=== PATIENT | male | born 1975 | race Hispanic/Latino ===

== ENCOUNTER 2018-02-17 15:21 | Inpatient (IN) | payer SELFPAY ==
[2018-02-17] MEDS ORDERED: Piperacillin/Tazobact 3.375 gm 100 ML IV STA (15:42)
--- NOTE | 2018-02-17 15:44 | C.PDOC ---
History Of Present Illness 42 year old male presents to the emergency department with complaints of a cyst started 2 weeks ago on the posterior aspect of his neck near C6 and C7. Patient reports as the cyst grew larger he attempted to pop it but to no avail, the cyst continued to grow. Patient reports he had a fever last week which presented with pain, and that he began to take a friend's pain medications. He now has a large mass with purulent weeping and surrounding redness and tenderness. Time Seen by Provider: 02/17/18 15:37 Chief Complaint (Nursing): Abnormal Skin Integrity History Per: Patient History/Exam Limitations: no limitations Onset/Duration Of Symptoms: Other (2 weeks) Current Symptoms Are (Timing): Worse Quality Of Symptoms: Painful, Swollen, Draining Past Medical History Reviewed: Historical Data, Nursing Documentation, Vital Signs Vital Signs: Last Vital Signs Temp 98.7 F 02/17/18 15:25 Pulse 112 H 02/17/18 15:41 Resp 18 02/17/18 15:41 BP 164/101 H 02/17/18 15:41 Pulse Ox 96 02/17/18 16:59 - Medical History PMH: No Chronic Diseases Surgical History: No Surg Hx Family History: States: No Known Family Hx - Social History Hx Alcohol Use: Yes Hx Substance Use: No Review Of Systems Constitutional: Negative for: Fever, Chills, Sweats Respiratory: Negative for: Shortness of Breath, Pleuritic Pain Skin: Positive for: Other (cyst with surrounding redness) Physical Exam - Physical Exam Appears: Well, Non-toxic, No Acute Distress Skin: Other (large abscess with foul-smelling fluid drainage from multiple areas. Surroinding indurated red cellulitis. ) Head: Atraumatic Neck: Normal ROM, Trachea Midline, No Midline Cervical Tenderness, No Paracervical Tenderness Lymphatic: No Adenopathy Chest: Symmetrical Cardiovascular: Rhythm Regular (tachycardic) Respiratory: Normal Breath Sounds ED Course And Treatment - Laboratory Results Result Diagrams: 02/17/18 15:58 02/17/18 15:58 Lab Interpretation: No Acute Changes O2 Sat by Pulse Oximetry: 96 (RA) Pulse Ox Interpretation: Normal Progress Note: Plan: CMP. CBC. Zosyn 100ml IV. Vancomycin 1gm/250ml IV. Blood Culture. Wound Culture and Gram Stain Reevaluation Time: 16:57 Reassessment Condition: Unchanged - Physician Consult Information Outcome Of Conversation: Case discussed with Dr Scott. Patient to be admitted to medicine for IV antibiotics and surgical consult for I&D in 1-[address] Sorto agrees to accept on medicine service. Disposition - Disposition Disposition: HOSPITALIZED Disposition Time: 16:58 Condition: STABLE - POA Present On Arrival: None - Clinical Impression Clinical Impression: Cellulitis, Abscess of skin of neck - Scribe Statement The provider has reviewed the documentation as recorded by the Scribe (Triston Mckinleyvi) Provider Attestation: All medical record entries made by the Scribe were at my direction and personally dictated by me. I have reviewed the chart and agree that the record accurately reflects my personal performance of the history, physical exam, medical decision making, and the department course for this patient. I have also personally directed, reviewed, and agree with the discharge instructions and disposition.
[2018-02-17] MEDS ORDERED: Vancomycin 1 GM 1 GM/250 ML BAG IV SCH ×2 (15:45→17:00)
[2018-02-17 16:05] LABS: BASO # 0.1 K/uL (0.0-0.2); BASO % 0.5 % (0.0-2.0); EOS # 0.2 K/uL (0.0-0.7); EOS % 1.7 % (0.0-4.0); HEMOGLOBIN 15.1 g/dL (12.0-18.0); LYMPH # 1.4 K/uL (1.0-4.3); LYMPH % 13.2 % (20.0-40.0); MEAN CELL VOLUME 90.9 fL (80.0-94.0); MEAN CORPUSCULAR HEMOGLOBIN 32.4 pg (27.0-31.0); MEAN CORPUSCULAR HGB CONC 35.6 g/dL (33.0-37.0); MONO # 1.1 K/uL (0.0-0.8); NEUT # 7.9 K/uL (1.8-7.0); NEUT % 74.6 % (50.0-75.0); NRBC % 0.1 % (0.0-2.0); RBC 4.65 Mil/uL (4.40-5.90); RED CELL DISTRIBUTION WIDTH 12.9 % (11.5-14.5); WHITE BLOOD COUNT 10.6 K/uL (4.8-10.8)
[2018-02-17 16:17] LABS: ALB/GLOB RATIO 1.1 (1.0-2.1); ALBUMIN 4.4 g/dL (3.5-5.0); ALT/SGPT 59 U/L (21-72); AST/SGOT 56 U/L (17-59); BLOOD UREA NITROGEN 13 mg/dL (9-20); CALCIUM 9.6 mg/dl (8.6-10.4); GFR AFRICAN-AMERICAN > 60; GFR NON-AFRICAN AMERICAN > 60
[2018-02-17] MEDS ORDERED: Piperacillin/Tazobact 3.375 gm 100 ML IVPB ONE (16:20)
[2018-02-17] MEDS ORDERED: Vancomycin 1 GM 1 GM/250 ML BAG IV ONE (17:00)
[2018-02-17] MEDS ORDERED: Vancomycin 1 gm/NS 200 ml 1 GM/200 ML BAG IVPB ONE (17:00)
--- NOTE | 2018-02-17 17:09 | CP.PCM.HP ---
<Constanza Olson - Last Filed: 02/17/18 18:35> History of Present Illness - History of Present Illness History of Present Illness: Medicine Note for Hospitalist Service- Dr. Sorto CC: neck abscess HPI: This is a 42 year old male with no significant PMHx who presents to the ED with a neck abscess. Patient reports he has had a neck bump for about 10 years. It has never bothered him but it has increased in size throughout the years. Recently he was sick with the flu x 2 weeks ago, treated with OTC medications. Once he started to feel better, about a week ago the bump started to bother him so he applied slight pressure and pus was expelled. He washed the abscess and applied OTC antibacterial cream. He took a friend's percocet for the pain. He continued to have pus expelling and it started to become foul smelling, which is what brought him in. Denied sick contacts, recent travel. Admitted to slight headache this week. Denied fever, chills, chest pain, SOB, abdominal pain, n/v/d /c or urinary symptoms. PMHx: Denied PSHx: right thumb surgery at age 18 Meds: As per MAR All: NKDA SHx: Denied alcohol, tobacco, or illicit drug use FHx: Unremarkable PMD: none Cousin Jerel Gutierrez [phone] Maya Bolivar (friend) [phone] Present on Admission - Present on Admission Any Indicators Present on Admission: No Past Patient History - Past Social History Smoking Status: Never Smoked - PSYCHIATRIC Hx Substance Use: No - SURGICAL HISTORY Hx Surgeries: Yes Other/Comment: RIGHT THUMB Meds Allergies/Adverse Reactions: Allergies Allergy/AdvReac Type Severity Reaction Status Date / Time No Known Allergies Allergy Verified 02/17/18 15:29 Physical Exam - Constitutional Appears: No Acute Distress - Head Exam Head Exam: NORMAL INSPECTION, NORMOCEPHALIC - Eye Exam Eye Exam: EOMI, Normal appearance, PERRL Pupil Exam: NORMAL ACCOMODATION - ENT Exam ENT Exam: Mucous Membranes Moist, Normal Exam - Neck Exam Neck exam: Positive for: Normal Inspection Additional comments: large abscess with foul-smelling fluid drainage from multiple areas. Surrounding indurated red cellulitis. full ROM, pain elicited during head flexion due to pressure felt on abscess not 2/2 due to stiffness - Respiratory Exam Respiratory Exam: Clear to Auscultation Bilateral, NORMAL BREATHING PATTERN. absent: Wheezes - Cardiovascular Exam Cardiovascular Exam: Tachycardia - GI/Abdominal Exam GI & Abdominal Exam: Normal Bowel Sounds, Soft. absent: Distended, Tenderness - Rectal Exam Rectal Exam: Deferred - Extremities Exam Extremities exam: Positive for: normal inspection, pedal pulses present. Negative for: pedal edema, tenderness - Back Exam Back exam: NORMAL INSPECTION - Neurological Exam Neurological exam: Alert, CN II-XII Intact, Oriented x3 - Psychiatric Exam Psychiatric exam: Normal Affect, Normal Mood - Skin Skin Exam: Dry, Intact, Normal Color, Warm Results - Vital Signs Recent Vital Signs: Last Vital Signs Temp 98.7 F 02/17/18 15:25 Pulse 112 H 02/17/18 15:41 Resp 18 02/17/18 15:41 BP 164/101 H 02/17/18 15:41 Pulse Ox 96 02/17/18 17:05 - Labs Result Diagrams: 02/17/18 15:58 02/17/18 15:58 Labs: Laboratory Results - last 24 hr 02/17/18 02/17/18 15:58 15:58 WBC 10.6 RBC 4.65 Hgb 15.1 Hct 42.3 MCV 90.9 MCH 32.4 H MCHC 35.6 RDW 12.9 Plt Count 227 MPV 8.0 Neut % (Auto) 74.6 Lymph % (Auto) 13.2 L [place] % (Auto) 10.0 Eos % (Auto) 1.7 Baso % (Auto) 0.5 Neut # (Auto) 7.9 H Lymph # (Auto) 1.4 [place] # (Auto) 1.1 H Eos # (Auto) 0.2 Baso # (Auto) 0.1 Sodium 143 Potassium 4.1 Chloride 97 L Carbon Dioxide 31 H Anion Gap 20 BUN 13 Creatinine 1.0 Est GFR ( Amer) > 60 Est GFR (Non-Af Amer) > 60 Random Glucose 111 H Calcium 9.6 Total Bilirubin 0.8 AST 56 ALT 59 Alkaline Phosphatase 81 Total Protein 8.6 H Albumin 4.4 Globulin 4.1 H Albumin/Globulin Ratio 1.1 Assessment & Plan - Assessment and Plan (Free Text) Assessment: This is a 42 year old male with no significant PMHx who presents to the ED with a neck abscess, uncertain if there is spinal involvement pending CT Scan. Plan: Posterior Neck Abscess - General Surgery consulted - Dr. Scott - plan for I&D 02/18/18 - Afebrile, no leukocytosis or left shift - CXR: NAD, EKG: Sinus Tachycardia @ 102, NAD, no ST changes - Pending Neck CT to determine if there is spinal involvement -- pending results may need neurosurgery consult - Patient is medically optimized for incision and drainage. Surgery and Anesthesia to discuss risks and benefits. Management: - Vanco Q12, Zosyn Q8H, tylenol, motrin, toradol PRN, f/u vanco trough - F/U blood and wound cultures Prophylaxis - GI: Protonix, Florastor 250mg Q12 - DVT: SCDs, VTE c/i for pre-op Disposition: Patient is for OR tomorrow for I&D with Dr. Scott. DW Dr. Sorto, Constanza Olson DO, PGY-1 <Oralia Sorto V - Last Filed: 02/18/18 07:36> Results - Vital Signs Recent Vital Signs: Last Vital Signs Temp 99.2 F 02/17/18 18:20 Pulse 94 H 02/17/18 18:20 Resp 18 02/17/18 18:20 BP 145/78 02/17/18 18:20 Pulse Ox 98 02/17/18 18:20 - Labs Result Diagrams: 02/18/18 06:42 02/18/18 06:42 Labs: Laboratory Results - last 24 hr 02/17/18 02/17/18 02/17/18 15:58 15:58 17:21 WBC 10.6 RBC 4.65 Hgb 15.1 Hct 42.3 MCV 90.9 MCH 32.4 H MCHC 35.6 RDW 12.9 Plt Count 227 MPV 8.0 Neut % (Auto) 74.6 Lymph % (Auto) 13.2 L [place] % (Auto) 10.0 Eos % (Auto) 1.7 Baso % (Auto) 0.5 Neut # (Auto) 7.9 H Lymph # (Auto) 1.4 [place] # (Auto) 1.1 H Eos # (Auto) 0.2 Baso # (Auto) 0.1 PT 12.5 H INR 1.1 Sodium 143 Potassium 4.1 Chloride 97 L Carbon Dioxide 31 H Anion Gap 20 BUN 13 Creatinine 1.0 Est GFR ( Amer) > 60 Est GFR (Non-Af Amer) > 60 Random Glucose 111 H Calcium 9.6 Total Bilirubin 0.8 AST 56 ALT 59 Alkaline Phosphatase 81 Total Protein 8.6 H Albumin 4.4 Globulin 4.1 H Albumin/Globulin Ratio 1.1 Attending/Attestation - Attestation I have personally seen and examined this patient.: Yes I have fully participated in the care of the patient.: Yes I have reviewed all pertinent clinical information: Yes Notes (Text): Patient seen, examined and case discussed with day-time resident. Patient noted to have small neck bump, which he noted had expressed by himself couple of days ago, was using [facility] OTC neosporin type ointment, over the past two days he saw it expand in size, has been doing guaze changes on his own , and noted ot was quite painful and smelly. note: no nuchal rigdity, no restriction in flexion/extension at the neck, area of abscess is demaracated, no neuro deficits, noted to have small cysts over the head and prior removal of cysts Assessment/Plan 1) Posterior Neck Abscess * General Surgery consulted - Dr. Scott - plan for I&D 02/18/18 * Infectious Disease Consulted--Dr Shrestha * Afebrile, no leukocytosis or left shift * CXR: NAD, EKG: Sinus Tachycardia @ 102, NAD, no ST changes; tachycardia likely secondary to pain * Patient does not have any diabetes, hypertension, no chest pain, denies palpitations, no personal cardiac history; father had OK at age 50s. * Soft Tissue Neck CT: abscess within the superficial soft tissues overlying the dorsal paraspinal muscles at level C5-6. The abscess is contained the subcutaneous fat. No involvement of the adjacent musculature or spinal canal. Degenerative changes within the thoracic spine at T9-T10 with moderate to severe right foraminal stenosis * Patient has allowed us to take photo of his abscess and share amongst team involved in his case. Patient's cellulitis is outline with marker with deep rubor in center. Patient does have pus draining from the site. Patient about 3 finger breadths in in Y axis and about 4 finger breadths in X axis. I have educated patient that it may naturally express the abscess. * Chest xray (02/17/18): no acute cardiopulmonary disease appreciated * Detsky's criteria: Patient is low-medium risk individual for Class I 6% complications (EKG: sinus tachycardia). * Patient given dose of Zosyn and Vancomycin IV in the ED. Will continue IV antibiotics and ID consult. * Start Zosyn 3.375 IVPB Q 8H * Vancomycin 1 gram IV Q12H * NS 100cc/hr * Surgery and anesthesia to discuss risks and benefits prior to procedure respectively * will hold anticoagulation for possible OR with surgery * Blood cultures (02/17/18): pending * Wound culture (02/17/18): pending 2) Prophylaxis * GI: Protonix 40mg IV daily * Florastor 250mg PO BID * DVT PPx: Scds; hold chemical anticoagulation for possible OR with general surgery for neck abscess. * DVT: SCDs, VTE c/i for pre-op
[2018-02-17] MEDS: Sodium Chloride 0.9% 1,000 ML IV SCH (17:18)
[2018-02-17] MEDS ORDERED: Sodium Chloride 0.9% 1,000 ML ONE (17:23)
[2018-02-17 17:30] LABS: INR 1.1; PROTHROMBIN TIME 12.5 SECONDS (9.7-12.2)
--- NOTE | 2018-02-17 17:57 | RAD ---
HISTORY: pre-op COMPARISON: No prior. TECHNIQUE: Chest PA and lateral FINDINGS: LUNGS: No active pulmonary disease. PLEURA: No significant pleural effusion identified. No pneumothorax apparent. CARDIOVASCULAR: Normal. OSSEOUS STRUCTURES: No significant abnormalities. VISUALIZED UPPER ABDOMEN: Normal. OTHER FINDINGS: None. IMPRESSION: No acute cardiopulmonary disease appreciated.
[2018-02-17] MEDS ORDERED: Saccharomyces Boulardi 250 mg Cap PO SCH (18:00)
[2018-02-17] MEDS ORDERED: Iodixanol 320 MG/ML 100 ML BOTTLE IV ONE (18:26)
[2018-02-17] MEDS: Pantoprazole 40 mg EC Tab PO SCH (19:16)
--- NOTE | 2018-02-17 19:24 | CT ---
EXAM: CT Neck With Intravenous Contrast EXAM DATE/TIME: Exam ordered 02/17/2018 4:55 PM CLINICAL HISTORY: 42 years old, male; Signs and symptoms; Abscess, cutaneous; Additional info: Abscess posterior dorsal spine TECHNIQUE: Axial computed tomography images of the neck with intravenous contrast. All CT scans at this facility use one or more dose reduction techniques, viz.: automated exposure control; ma/kV adjustment per patient size (including targeted exams where dose is matched to indication; i.e. head); or iterative reconstruction technique. Coronal and sagittal reformatted images were created and reviewed. CONTRAST: 100 mL of visipaque 320 administered intravenously. COMPARISON: No relevant prior studies available. FINDINGS: Oropharynx: Unremarkable. No significant tonsillar enlargement. No peritonsillar abscess. Hypopharynx: Unremarkable. Larynx: Unremarkable. Normal epiglottis. Trachea: Unremarkable. Retropharyngeal space: Unremarkable. Submandibular/parotid glands: Unremarkable. Glands are normal in size. Thyroid: Unremarkable. No enlarged or calcified nodules. Bones/joints: Mild degenerative changes are noted at C5-6 with tiny marginal osteophytes. Facet arthropathy on the right is noted within the thoracic spine at T9-10 resulting in moderate to severe right foraminal stenosis. No acute fracture. Soft tissues: There is a fluid collection noted within the subcutaneous soft tissues overlying the dorsal paraspinal muscles at C5-6. Marked inflammatory changes are noted surrounding the fluid collection with induration of the skin. The fluid collection measures 2.7 x 3.2 by 3.3 cm. Vasculature: See below. Lymph nodes: Unremarkable. No lymphadenopathy. Lung apices: A tiny bubble of air is noted within the main pulmonary artery related to the contrast injection. IMPRESSION: 1. Abscess within the superficial soft tissues overlying the dorsal paraspinal muscles at level C5-6. The abscess is contained to the subcutaneous fat. No involvement of the adjacent musculature or spinal canal 2. Degenerative changes within the thoracic spine at T9-10 with moderate to severe right foraminal stenosis
--- NOTE | 2018-02-17 21:19 | CP.PCM.CON ---
History of Present Illness - History of Present Illness History of Present Illness: General surgery consult note for Dr. Leeroy Parker, PGY-1 Pt S & E at bedside at approximately 2014 42M w/PMH sig for subcutaneous cysts consulted for posterior neck abscess x 2 weeks. Pt reports noting a small neck pimple approximately 2 weeks ago that he consequently popped. Pt has had a "neck bump" x 10 yrs with increasing size over time. Approximately a week after that he reports subjective fevers, chills , "flu like" symptoms. Approximately 1 week after that, he noticed lesion increasing in tenderness, redness and size. Pt notes drainage that started approximately 3 days prior to evaluation. Pain is constant, moderate-severe, non radiating, alleviated by percocet and aggravated by pressure. Admits to headache. Denies current F & C, N & V, vision changes, CP, SOB, ab pain, changes in bowel or bladder habits, other complaints. Abscess within the superficial soft tissues overlying the dorsal paraspinal muscles at level C5-6. The abscess is contained to the subcutaneous fat. No involvement of the adjacent musculature or spinal canal. Afebrile. No leukocytosis. PMH: hx of subcutaneous cysts PSH: Right thumb sx All: NKDA SH: Admits to occasional ETOH use, denies tobacco or illicit drug use FH: Non contributory Review of Systems - Review of Systems All systems: reviewed and no additional remarkable complaints except - Constitutional Constitutional: Headache. absent: Chills, Fever - EENT Eyes: absent: Change in Vision Nose/Mouth/Throat: absent: Sore Throat - Cardiovascular Cardiovascular: absent: Chest Pain - Respiratory Respiratory: absent: Cough - Gastrointestinal Gastrointestinal: absent: Abdominal Pain, Change in Stool Character, Constipation, Diarrhea, Nausea, Vomiting - Genitourinary Genitourinary: absent: Change in Urinary Stream, Dysuria - Musculoskeletal Musculoskeletal: Neck Pain. absent: Numbness, Tingling - Integumentary Integumentary: New Lesions, Skin Pain, Swelling - Neurological Neurological: absent: Dizziness - Psychiatric Psychiatric: absent: Change in Appetite - Endocrine Endocrine: absent: Fatigue Past Patient History - Past Medical History & Family History Past Medical History?: No - Past Social History Smoking Status: Never Smoked - MUSCULOSKELETAL/RHEUMATOLOGICAL Hx Falls: No - PSYCHIATRIC Hx Substance Use: No - SURGICAL HISTORY Hx Surgeries: Yes Other/Comment: RIGHT THUMB Meds Allergies/Adverse Reactions: Allergies Allergy/AdvReac Type Severity Reaction Status Date / Time No Known Allergies Allergy Verified 02/17/18 15:29 - Medications Medications: Current Medications Acetaminophen (Tylenol 325mg Tab) 650 mg PO Q6 PRN PRN Reason: Fever >100.4 F Sodium Chloride (Sodium Chloride 0.9%) 1,000 mls @ 100 mls/hr IV .Q10H [facility] Stop: 02/18/18 23:14 Last Admin: 02/17/18 17:18 Dose: 100 mls/hr Piperacillin Sod/Tazobactam Sod (Zosyn 3.375 Gm Iv Premix) 3.375 gm in 50 mls @ 200 mls/hr IVPB Q8H [facility] PRN Reason: Protocol Vancomycin/Sodium Chloride (Vancomycin 1 Gm/Ns 200 Ml) 1 gm in 200 mls @ 166.7 mls/hr IVPB 1000,2200 [facility]EN[facility] PRN Reason: Protocol Stop: 02/23/18 10:01 Ibuprofen (Motrin Tab) 400 mg PO Q6 PRN PRN Reason: Pain, Mild (1-3) Ketorolac Tromethamine (Toradol) 30 mg IV Q6 PRN PRN Reason: Pain, severe (8-10) Stop: 02/19/18 17:11 Pantoprazole Sodium (Protonix Ec Tab) 40 mg PO DAILY [facility] Last Admin: 02/17/18 19:16 Dose: 40 mg Saccharomyces Boulardii (Florastor) 250 mg PO Q12 [facility] Physical Exam - Constitutional Appears: Non-toxic, No Acute Distress - Head Exam Head Exam: ATRAUMATIC, NORMAL INSPECTION, NORMOCEPHALIC - Eye Exam Eye Exam: EOMI, Normal appearance - ENT Exam ENT Exam: Mucous Membranes Moist, Normal Exam - Neck Exam Neck exam: Positive for: Tenderness (posterior neck with erythematous area approximately 9 cm in diameter, indurated at edges, fluctuant in middle, with small areas of drainage w/purulent, foul smelling material). Negative for: Normal Inspection - Respiratory Exam Respiratory Exam: Clear to Auscultation Bilateral, NORMAL BREATHING PATTERN. absent: Accessory Muscle Use - Cardiovascular Exam Cardiovascular Exam: REGULAR RHYTHM, +S1, +S2 - GI/Abdominal Exam GI & Abdominal Exam: Normal Bowel Sounds, Soft. absent: Distended, Tenderness - Extremities Exam Extremities exam: Positive for: normal inspection. Negative for: pedal edema - Neurological Exam Neurological exam: Alert, CN II-XII Intact, Oriented x3 - Psychiatric Exam Psychiatric exam: Normal Affect, Normal Mood - Skin Skin Exam: Dry, Intact, Normal Color, Warm Additional comments: please see neck exam for skin findings Results - Vital Signs Recent Vital Signs: Last Vital Signs Temp 99.2 F 02/17/18 18:20 Pulse 94 H 02/17/18 18:20 Resp 18 02/17/18 18:20 BP 145/78 02/17/18 18:20 Pulse Ox 98 02/17/18 18:20 - Labs Result Diagrams: 02/17/18 15:58 02/17/18 15:58 Labs: Laboratory Results - last 24 hr 02/17/18 02/17/18 02/17/18 15:58 15:58 17:21 WBC 10.6 RBC 4.65 Hgb 15.1 Hct 42.3 MCV 90.9 MCH 32.4 H MCHC 35.6 RDW 12.9 Plt Count 227 MPV 8.0 Neut % (Auto) 74.6 Lymph % (Auto) 13.2 L [place] % (Auto) 10.0 Eos % (Auto) 1.7 Baso % (Auto) 0.5 Neut # (Auto) 7.9 H Lymph # (Auto) 1.4 [place] # (Auto) 1.1 H Eos # (Auto) 0.2 Baso # (Auto) 0.1 PT 12.5 H INR 1.1 Sodium 143 Potassium 4.1 Chloride 97 L Carbon Dioxide 31 H Anion Gap 20 BUN 13 Creatinine 1.0 Est GFR ( Amer) > 60 Est GFR (Non-Af Amer) > 60 Random Glucose 111 H Calcium 9.6 Total Bilirubin 0.8 AST 56 ALT 59 Alkaline Phosphatase 81 Total Protein 8.6 H Albumin 4.4 Globulin 4.1 H Albumin/Globulin Ratio 1.1 Assessment & Plan - Assessment and Plan (Free Text) Assessment: 42M w/posterior neck abscess, draining Plan: NPO pMN Plan for OR tomorrow for I & D Pain control PRN Abx Warm compresses Consent in chart Further mgmt as per primary team SERINA attending Elena, PGY-1 - Date & Time Date: 02/17/18 Time: 20:40
[2018-02-17] MEDS: Saccharomyces Boulardi 250 mg Cap PO SCH (22:55)
[2018-02-18] MEDS: Sodium Chloride 0.9% 1,000 ML IV SCH ×3 (03:15→14:15)
[2018-02-18 06:51] LABS: BASO # 0.1 K/uL (0.0-0.2); BASO % 0.6 % (0.0-2.0); EOS # 0.3 K/uL (0.0-0.7); HEMOGLOBIN 13.1 g/dL (12.0-18.0); LYMPH # 2.1 K/uL (1.0-4.3); LYMPH % 22.2 % (20.0-40.0); MEAN CELL VOLUME 90.5 fL (80.0-94.0); MEAN CORPUSCULAR HEMOGLOBIN 32.8 pg (27.0-31.0); MEAN CORPUSCULAR HGB CONC 36.2 g/dL (33.0-37.0); MEAN PLATELET VOLUME 7.9 fL (7.2-11.7); MONO # 0.9 K/uL (0.0-0.8); MONO % 9.9 % (0.0-10.0); NEUT % 64.3 % (50.0-75.0); RED CELL DISTRIBUTION WIDTH 12.6 % (11.5-14.5); WHITE BLOOD COUNT 9.4 K/uL (4.8-10.8)
[2018-02-18 07:31] LABS: ALB/GLOB RATIO 0.9 (1.0-2.1); ALBUMIN 3.6 g/dL (3.5-5.0); ALT/SGPT 57 U/L (21-72); AST/SGOT 36 U/L (17-59); BLOOD UREA NITROGEN 13 mg/dL (9-20); CALCIUM 9.4 mg/dl (8.6-10.4); GFR AFRICAN-AMERICAN > 60; GFR NON-AFRICAN AMERICAN > 60
[2018-02-18] MEDS ORDERED: Vancomycin 1 gm/NS 200 ml 1 GM/200 ML BAG IVPB SCH (08:00)
[2018-02-18] MEDS ORDERED: Midazolam 2 MG/2 ML VIAL ONE (08:11)
[2018-02-18] MEDS ORDERED: Propofol 10 mg/ml Inj (20 ML) ONE (08:11)
[2018-02-18] MEDS ORDERED: Rocuronium 10 mg/ml (5 ml) ONE (09:29)
[2018-02-18] MEDS ORDERED: Succinylcholine Chloride 20 mg/ml Syr (5 ml) IV ONE (09:29)
--- NOTE | 2018-02-18 10:00 | PCM.SURG1 ---
Surgeon's Initial Post Op Note - Surgeon's Notes Surgeon: Dr. Scott Blueprint Developer: PGY1 Type of Anesthesia: General Endo Pre-Operative Diagnosis: Neck Abscess Operative Findings: Infected sebaceous cyst, purulent drainage, for details see op note Post-Operative Diagnosis: Infected sebaceous cyst, abscess, carbuncle of neck Operation Performed: 1. Incision and drainage of infected sebaceous cyst. 2. removal of cyst capsule. 3. debridement of skin Specimen/Specimens Removed: cyst capusule & Skin Estimated Blood Loss: EBL {In ML}: 20 Date of Surgery/Procedure: 02/18/18 Time of Surgery/Procedure: 10:01
[2018-02-18] MEDS ORDERED: Albuterol 0.083% Inhal Sol (2.5 mg/3 mL) UD INH ONE (10:01)
[2018-02-18] MEDS ORDERED: HYDROmorphone 0.5 mg/0.5 ml ISec IVP PRN (10:01)
[2018-02-18] MEDS ORDERED: Bupivacaine HCl 0.25% PF (30 ml) Inj ONE (10:08)
[2018-02-18] MEDS ORDERED: Lidocaine/Epinephrine 1% 1:100000 10 ML IJ ONE (10:08)
[2018-02-18] MEDS ORDERED: Albuterol 0.083% Inhal Sol (2.5 mg/3 mL) UD ONE (10:11)
--- NOTE | 2018-02-18 10:34 | RAD ---
HISTORY: desat post op COMPARISON: Chest radiograph dated 02/17/2018 FINDINGS: LUNGS: No active pulmonary disease. PLEURA: No significant pleural effusion identified, no pneumothorax apparent. CARDIOVASCULAR: Normal. OSSEOUS STRUCTURES: No significant abnormalities. VISUALIZED UPPER ABDOMEN: Normal. OTHER FINDINGS: None. IMPRESSION: No active disease.
--- NOTE | 2018-02-18 10:40 | CP.PCM.PN ---
<Constanza Olson - Last Filed: 02/18/18 10:37> Subjective - Date & Time of Evaluation Date of Evaluation: 02/18/18 Time of Evaluation: 09:00 - Subjective Subjective: Medicine Note for Hospitalist Service- Dr. Taj Otto Patient was seen and examined at bedside. Reports abscess continues to drain. Denied fever, chills, headaches, nucal rigidity, loss of sensation, tingling in extremities, chest pain, shortness of breath, abdominal pain, n/v/d/c, or urinary symptoms. Objective - Vital Signs/Intake and Output Vital Signs (last 24 hours): Temp Pulse Resp BP Pulse Ox 98.1 F 78 20 135/80 97 02/18/18 00:00 02/18/18 00:00 02/18/18 00:00 02/18/18 00:00 02/18/18 00:00 Intake and Output: 02/18/18 02/18/18 06:59 18:59 Intake Total 1620 Balance 1620 - Medications Medications: Current Medications Acetaminophen (Tylenol 325mg Tab) 650 mg PO Q6 PRN PRN Reason: Fever >100.4 F Hydromorphone HCl (Dilaudid) 0.5 mg IVP Q5M PRN PRN Reason: Pain, moderate (4-7) Stop: 02/18/18 12:01 Sodium Chloride (Sodium Chloride 0.9%) 1,000 mls @ 100 mls/hr IV .Q10H [facility] Stop: 02/18/18 23:14 Last Admin: 02/18/18 06:00 Dose: 100 mls/hr Piperacillin Sod/Tazobactam Sod (Zosyn 3.375 Gm Iv Premix) 3.375 gm in 50 mls @ 200 mls/hr IVPB Q8H [facility] PRN Reason: Protocol Last Admin: 02/18/18 00:00 Dose: 200 mls/hr Vancomycin/Sodium Chloride (Vancomycin 1 Gm/Ns 200 Ml) 1 gm in 200 mls @ 166.7 mls/hr IVPB 1000,2200 [facility] PRN Reason: Protocol Stop: 02/23/18 10:01 Ibuprofen (Motrin Tab) 400 mg PO Q6 PRN PRN Reason: Pain, Mild (1-3) Ketorolac Tromethamine (Toradol) 30 mg IV Q6 PRN PRN Reason: Pain, severe (8-10) Stop: 02/19/18 17:11 Ondansetron HCl (Zofran Inj) 4 mg IVP ONCE PRN PRN Reason: Nausea/Vomiting Stop: 02/18/18 12:02 Pantoprazole Sodium (Protonix Ec Tab) 40 mg PO DAILY [facility] Last Admin: 02/17/18 19:16 Dose: 40 mg Saccharomyces Boulardii (Florastor) 250 mg PO Q12 [facility] Last Admin: 02/17/18 22:55 Dose: 250 mg - Labs Labs: 02/18/18 06:42 02/18/18 06:42 PT 12.5 SECONDS (9.7-12.2) H 02/17/18 17:21 INR 1.1 02/17/18 17:21 APTT 31 SECONDS (21-34) 02/18/18 06:42 - Additional Findings Additional findings: - Constitutional Appears: No Acute Distress - Head Exam Head Exam: NORMAL INSPECTION, NORMOCEPHALIC - Eye Exam Eye Exam: EOMI, Normal appearance, PERRL Pupil Exam: NORMAL ACCOMODATION - ENT Exam ENT Exam: Mucous Membranes Moist, Normal Exam - Neck Exam Neck exam: Positive for: Normal Inspection Additional comments: large abscess with foul-smelling fluid drainage from multiple areas. Surrounding indurated red cellulitis. full ROM, pain elicited during head flexion due to pressure felt on abscess not 2/2 due to stiffness - Respiratory Exam Respiratory Exam: Clear to Auscultation Bilateral, NORMAL BREATHING PATTERN. absent: Wheezes - Cardiovascular Exam Cardiovascular Exam: Tachycardia - GI/Abdominal Exam GI & Abdominal Exam: Normal Bowel Sounds, Soft. absent: Distended, Tenderness - Rectal Exam Rectal Exam: Deferred - Extremities Exam Extremities exam: Positive for: normal inspection, pedal pulses present. Negative for: pedal edema, tenderness - Back Exam Back exam: NORMAL INSPECTION - Neurological Exam Neurological exam: Alert, CN II-XII Intact, Oriented x3 - Psychiatric Exam Psychiatric exam: Normal Affect, Normal Mood - Skin Skin Exam: Dry, Intact, Normal Color, Warm Assessment and Plan - Assessment and Plan (Free Text) Assessment: This is a 42 year old male with no significant PMHx who presents to the ED with a neck abscess, no spinal involvement confirmed on CT Neck. S/P I&D 02/18/18. Plan: Posterior neck infected sebaceous cyst S/P I&D 02/18/18 - General Surgery consulted - Dr. Scott - plan for I&D 02/18/18 - ID consulted - Dr. Shrestha - help appreciated - Afebrile, no leukocytosis or left shift - CXR: NAD, EKG: Sinus Tachycardia @ 102, NAD, no ST changes - Soft Tissue Neck CT: abscess within the superficial soft tissues overlying the dorsal paraspinal muscles at level C5-6. The abscess is contained the subcutaneous fat. No involvement of the adjacent musculature or spinal canal. Degenerative changes within the thoracic spine at T9-T10 with moderate to severe right foraminal stenosis - Detsky's criteria: Patient is low-medium risk individual for Class I 6% complications (EKG: sinus tachycardia). - Patient is medically optimized for incision and drainage. Surgery and anesthesia to discuss risks and benefits prior to procedure respectively Management: - Vanco Q12, Zosyn Q8H, tylenol, motrin, toradol PRN, f/u vanco trough - F/U blood and wound cultures Prophylaxis - GI: Protonix, Florastor 250mg Q12 - DVT: SCDs, VTE c/i for pre-op Disposition: Will follow up with wound culture for IV abx sensitivities to determine antibiotic regimen. Possible need of PICC line. DW Constanza Jones DO, PGY-1 <Taj Otto J - Last Filed: 02/18/18 20:06> Objective - Vital Signs/Intake and Output Vital Signs (last 24 hours): Temp Pulse Resp BP Pulse Ox 97.5 F L 85 20 132/81 96 02/18/18 15:00 02/18/18 15:00 02/18/18 15:00 02/18/18 15:00 02/18/18 15:00 Intake and Output: 02/18/18 02/19/18 18:59 06:59 Intake Total 2720 Balance 2720 - Medications Medications: Current Medications Acetaminophen (Tylenol 325mg Tab) 650 mg PO Q6 PRN PRN Reason: Fever >100.4 F Benzocaine/Menthol (Cepacol Sore Throat) 1 lewis MT QID PRN PRN Reason: Sore Throat Last Admin: 02/18/18 17:56 Dose: 1 lewis Sodium Chloride (Sodium Chloride 0.9%) 1,000 mls @ 100 mls/hr IV .Q10H [facility] Stop: 02/18/18 23:14 Last Admin: 02/18/18 14:15 Dose: Not Given Piperacillin Sod/Tazobactam Sod (Zosyn 3.375 Gm Iv Premix) 3.375 gm in 50 mls @ 200 mls/hr IVPB Q8H [facility] PRN Reason: Protocol Last Admin: 02/18/18 16:23 Dose: 200 mls/hr Vancomycin/Sodium Chloride (Vancomycin 1 Gm/Ns 200 Ml) 1 gm in 200 mls @ 166.7 mls/hr IVPB 1000,2200 [facility] PRN Reason: Protocol Stop: 02/23/18 10:01 Last Admin: 02/18/18 12:39 Dose: 166.7 mls/hr Ibuprofen (Motrin Tab) 400 mg PO Q6 PRN PRN Reason: Pain, Mild (1-3) Ketorolac Tromethamine (Toradol) 30 mg IV Q6 PRN PRN Reason: Pain, severe (8-10) Stop: 02/19/18 17:11 Pantoprazole Sodium (Protonix Ec Tab) 40 mg PO DAILY [facility] Last Admin: 02/18/18 11:00 Dose: Not Given Saccharomyces Boulardii (Florastor) 250 mg PO Q12 [facility] Last Admin: 02/18/18 11:00 Dose: Not Given - Labs Labs: 02/18/18 06:42 02/18/18 06:42 PT 12.5 SECONDS (9.7-12.2) H 02/17/18 17:21 INR 1.1 02/17/18 17:21 APTT 31 SECONDS (21-34) 02/18/18 06:42 Attending/Attestation - Attestation I have personally seen and examined this patient.: Yes I have fully participated in the care of the patient.: Yes I have reviewed all pertinent clinical information, including history, physical exam and plan: Yes Notes (Text): 02/18/18 20:06 Patient was seen and examined at 7:45 AM Exam, assessment and plan were gone over with the resident. F/U Vanco trough 02/19/18 Taj Otto D.O.
[2018-02-18] MEDS: Saccharomyces Boulardi 250 mg Cap PO SCH ×2 (11:00→22:22)
[2018-02-18] MEDS: Pantoprazole 40 mg EC Tab PO SCH (11:00)
[2018-02-18] MEDS: Vancomycin 1 gm/NS 200 ml 1 GM/200 ML BAG IVPB SCH ×3 (11:00→21:13)
--- NOTE | 2018-02-18 12:41 | CARD ---
APPROVED REPORT EKG Measurement Heart [id number] <Conclusion> Sinus tachycardia Otherwise normal ECG
--- NOTE | 2018-02-18 15:34 | CP.PCM.CON ---
History of Present Illness - History of Present Illness History of Present Illness: dictated Past Patient History - Past Medical History & Family History Past Medical History?: No - Past Social History Smoking Status: Never Smoked - MUSCULOSKELETAL/RHEUMATOLOGICAL Hx Falls: No - PSYCHIATRIC Hx Substance Use: No - SURGICAL HISTORY Hx Surgeries: Yes Other/Comment: RIGHT THUMB Meds Allergies/Adverse Reactions: Allergies Allergy/AdvReac Type Severity Reaction Status Date / Time No Known Allergies Allergy Verified 02/17/18 15:29 - Medications Medications: Current Medications Acetaminophen (Tylenol 325mg Tab) 650 mg PO Q6 PRN PRN Reason: Fever >100.4 F Sodium Chloride (Sodium Chloride 0.9%) 1,000 mls @ 100 mls/hr IV .Q10H [facility] Stop: 02/18/18 23:14 Last Admin: 02/18/18 14:15 Dose: Not Given Piperacillin Sod/Tazobactam Sod (Zosyn 3.375 Gm Iv Premix) 3.375 gm in 50 mls @ 200 mls/hr IVPB Q8H [facility] PRN Reason: Protocol Last Admin: 02/18/18 00:00 Dose: 200 mls/hr Vancomycin/Sodium Chloride (Vancomycin 1 Gm/Ns 200 Ml) 1 gm in 200 mls @ 166.7 mls/hr IVPB 1000,2200 [facility] PRN Reason: Protocol Stop: 02/23/18 10:01 Last Admin: 02/18/18 12:39 Dose: 166.7 mls/hr Ibuprofen (Motrin Tab) 400 mg PO Q6 PRN PRN Reason: Pain, Mild (1-3) Ketorolac Tromethamine (Toradol) 30 mg IV Q6 PRN PRN Reason: Pain, severe (8-10) Stop: 02/19/18 17:11 Pantoprazole Sodium (Protonix Ec Tab) 40 mg PO DAILY [facility] Last Admin: 02/18/18 11:00 Dose: Not Given Saccharomyces Boulardii (Florastor) 250 mg PO Q12 [facility] Last Admin: 02/18/18 11:00 Dose: Not Given Results - Vital Signs Recent Vital Signs: Last Vital Signs Temp 98.5 F 02/18/18 11:15 Pulse 91 H 02/18/18 11:15 Resp 16 02/18/18 11:15 BP 126/82 02/18/18 11:15 Pulse Ox 96 02/18/18 11:15 - Labs Result Diagrams: 02/18/18 06:42 02/18/18 06:42 Labs: Laboratory Results - last 24 hr 02/17/18 02/17/18 02/17/18 15:58 15:58 17:21 WBC 10.6 RBC 4.65 Hgb 15.1 Hct 42.3 MCV 90.9 MCH 32.4 H MCHC 35.6 RDW 12.9 Plt Count 227 MPV 8.0 Neut % (Auto) 74.6 Lymph % (Auto) 13.2 L Winn % (Auto) 10.0 Eos % (Auto) 1.7 Baso % (Auto) 0.5 Neut # (Auto) 7.9 H Lymph # (Auto) 1.4 Winn # (Auto) 1.1 H Eos # (Auto) 0.2 Baso # (Auto) 0.1 ESR PT 12.5 H INR 1.1 APTT Sodium 143 Potassium 4.1 Chloride 97 L Carbon Dioxide 31 H Anion Gap 20 BUN 13 Creatinine 1.0 Est GFR ( Amer) > 60 Est GFR (Non-Af Amer) > 60 POC Glucose (mg/dL) Random Glucose 111 H Calcium 9.6 Total Bilirubin 0.8 AST 56 ALT 59 Alkaline Phosphatase 81 C-Reactive Protein Total Protein 8.6 H Albumin 4.4 Globulin 4.1 H Albumin/Globulin Ratio 1.1 02/18/18 02/18/18 02/18/18 06:42 06:42 06:42 WBC 9.4 RBC 4.00 L Hgb 13.1 D Hct 36.2 MCV 90.5 MCH 32.8 H MCHC 36.2 RDW 12.6 Plt Count 235 MPV 7.9 Neut % (Auto) 64.3 Lymph % (Auto) 22.2 Winn % (Auto) 9.9 Eos % (Auto) 3.0 Baso % (Auto) 0.6 Neut # (Auto) 6.0 Lymph # (Auto) 2.1 Winn # (Auto) 0.9 H Eos # (Auto) 0.3 Baso # (Auto) 0.1 ESR 72 H PT INR APTT 31 Sodium 145 Potassium 5.1 Chloride 103 Carbon Dioxide 31 H Anion Gap 16 BUN 13 Creatinine 1.0 Est GFR ( Amer) > 60 Est GFR (Non-Af Amer) > 60 POC Glucose (mg/dL) Random Glucose 93 Calcium 9.4 Total Bilirubin 0.9 AST 36 ALT 57 Alkaline Phosphatase 71 C-Reactive Protein 153.10 H Total Protein 7.5 Albumin 3.6 Globulin 3.8 Albumin/Globulin Ratio 0.9 L 02/18/18 08:04 WBC RBC Hgb Hct MCV MCH MCHC RDW Plt Count MPV Neut % (Auto) Lymph % (Auto) Winn % (Auto) Eos % (Auto) Baso % (Auto) Neut # (Auto) Lymph # (Auto) Winn # (Auto) Eos # (Auto) Baso # (Auto) ESR PT INR APTT Sodium Potassium Chloride Carbon Dioxide Anion Gap BUN Creatinine Est GFR ( Amer) Est GFR (Non-Af Amer) POC Glucose (mg/dL) 86 Random Glucose Calcium Total Bilirubin AST ALT Alkaline Phosphatase C-Reactive Protein Total Protein Albumin Globulin Albumin/Globulin Ratio
[2018-02-18] MEDS: Piperacill/Tazo 3.375gm in Dex 3.375 GM/50 ML BAG IVPB SCH ×2 (16:23)
[2018-02-18] MEDS ORDERED: Benzocaine/Menthol (Cepacol) Lozenge MT PRN (16:45)
--- NOTE | 2018-02-18 22:51 | OP ---
PROCEDURE DATE: 02/18/2018 PREOPERATIVE DIAGNOSES: 1. Carbuncle of posterior neck approximately 6 x 6 cm in size. 2. Underlying neck abscess. POSTOPERATIVE DIAGNOSES: 1. Infected sebaceous cyst with abscess. 2. Carbuncle of overlying soft tissue. 3. Cellulitis of the neck. PROCEDURES DONE: 1. Incision and drainage of posterior neck abscess. 2. Partial excision of sebaceous cyst of the posterior neck. 3. Debridement of the wound and carbuncle of the posterior neck. SURGEON: Luis Eduardo Scott MD CONTRACT PROCESSOR: Samaria, PGY-1 resident. TYPE OF ANESTHESIA: General endotracheal tube anesthesia. ESTIMATED BLOOD LOSS: Around 20 mL. DRAINS: None. PATHOLOGY: 1. The pus was sent for culture and sensitivity. 2. Partially excised sebaceous cyst was sent for the pathology. 3. Overlying necrotic skin of the carbuncle was sent for the pathology. COMPLICATIONS: None. INTRAOPERATIVE FINDINGS: The patient had approximately 6 x 6 cm large sebaceous cyst of the posterior neck with abscess and superficial skin had changes of carbuncle and multiple skin abscesses. DESCRIPTION OF PROCEDURE: On intraoperative steps, this is a 42-year-old male who was diagnosed with abscess of the posterior neck with cellulitis and carbuncle. The patient was consented for the incision and drainage as well as debridement, brought to the OR, placed in a supine position after induction of the anesthesia. The patient was placed in a left lateral position and the incision was made on the most fluctuant part. The abscess was drained approximately 10 mL of pus was drained. The patient was found to have underlying infected sebaceous cyst and the sebaceous cyst was partially excised with surrounding wall and overlying skin of the carbuncle appeared to be with multiple skin abscesses and necrosis and the skin was also excised and wound was debrided and hemostasis was achieved. The wound was irrigated and dry sterile dressing was applied. The patient tolerated the procedure well. Count of the instrument and gauze was correct. There was no apparent complication. The patient was extubated in the OR and sent to the Postanesthesia Care Unit in stable condition. Luis Eduardo Scott MD [facility] # [id number]
[2018-02-19] MEDS: Piperacill/Tazo 3.375gm in Dex 3.375 GM/50 ML BAG IVPB SCH ×5 (00:20→23:56)
--- NOTE | 2018-02-19 08:33 | CON ---
DATE: HISTORY OF PRESENT ILLNESS: This patient is a 42-year-old male. He says he has had this bump in the neck for the last 10 years, but now it was rubbing his collar and was increasing in size. Two weeks ago, he became sick with flu-like symptoms. He took Theraflu, he thought he was getting better, but a week ago, the bump started to bother him and the pus came out and he wiped the abscess, applied some antibacterial cream, and he took a Percocet from his friends, but pus kept on coming out, and it was foul smelling and that brought him to the hospital. 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 He did not have any fever, chills, chest pain, shortness of breath, nausea, vomiting, diarrhea or urinary complaints. PAST MEDICAL HISTORY: Negative. PAST SURGICAL HISTORY: Right thump surgery at age 18. MEDICATIONS: Are noted. ALLERGIES: HE IS NOT ALLERGIC TO ANY MEDICINES. SOCIAL HISTORY: Negative for smoking, drinking, or any drug abuse. No history of substance abuse. FAMILY HISTORY: Noncontributory. REVIEW OF SYSTEMS: He denied any other complaints except this. Today when I went to see him, he was placed on vancomycin and Zosyn yesterday which I agreed with, and today, when I went to see him, he had already had an I and D done and he had a big time dressing, so let me see the OR note. OR note says, I and D of infected sebaceous cyst, removal of cyst capsules, debridement of skin, so it was an infected sebaceous cyst that seen. PHYSICAL EXAMINATION: VITAL SIGNS: I find, his temperature is 97.5, pulse 85, blood pressure 132/81, respirations are 20. HEENT: Head is atraumatic, normocephalic. Pupils are reacting to light. Throat, no congestion. No thrush seen. NECK: Supple. LUNGS: Clear. No crackles or rales present. HEART: S1, S2 regular. ABDOMEN: Soft, nontender. No guarding, no rigidity present. EXTREMITIES: No edema. There was a mild dressing on his upper back. LABORATORY DATA: Labs are noted. Lab shows white count is 9.4, hemoglobin 13.1, hematocrit 36.2, platelet count is 235, CO2 is 31, BUN is 13, creatinine is 1. Microwise, wound culture was negative and OR culture is pending at this time from 02/18/2018, and the patient is on medications, Zosyn and vancomycin. He is getting IV fluids, Florastor, Protonix, Toradol, Motrin, and Tylenol, and he had a CAT scan yesterday. Chest x-ray was negative. CAT scan showed abscess with superficial soft tissue, overlying the dorsal paraspinal muscle at the level of C5 and C6. The abscess ____ subcutaneous fat. No involvement of descent musculature or spinal canal. Degenerative changes within the thoracic spine at T9 to T10, with moderate to severe right foraminal stenosis. At this time, the patient does have infected sebaceous cyst. He had an I and D and will be seen tomorrow by Surgery and we will wait for the culture report, and if he is cleared by Surgery and once the culture reports are available, we will sent him on oral antibiotics and he should be okay with that. Conor Shrestha MD
[2018-02-19 08:37] LABS: BASO % 0.1 % (0.0-2.0); EOS % 0.1 % (0.0-4.0); HEMOGLOBIN 12.8 g/dL (12.0-18.0); LYMPH # 1.6 K/uL (1.0-4.3); LYMPH % 10.7 % (20.0-40.0); MEAN CELL VOLUME 90.1 fL (80.0-94.0); MEAN CORPUSCULAR HEMOGLOBIN 31.7 pg (27.0-31.0); MEAN CORPUSCULAR HGB CONC 35.2 g/dL (33.0-37.0); MEAN PLATELET VOLUME 8.1 fL (7.2-11.7); MONO # 1.1 K/uL (0.0-0.8); MONO % 7.1 % (0.0-10.0); NEUT # 12.1 K/uL (1.8-7.0); NRBC % 0.1 % (0.0-2.0); RBC 4.02 Mil/uL (4.40-5.90); RED CELL DISTRIBUTION WIDTH 12.7 % (11.5-14.5)
[2018-02-19 08:39] LABS: WHITE BLOOD COUNT 14.8 K/uL (4.8-10.8)
[2018-02-19 08:56] LABS: ALB/GLOB RATIO 1.1 (1.0-2.1); ALBUMIN 3.7 g/dL (3.5-5.0); ALT/SGPT 37 U/L (21-72); AST/SGOT 30 U/L (17-59); BLOOD UREA NITROGEN 16 mg/dL (9-20); CALCIUM 8.8 mg/dl (8.6-10.4); GFR AFRICAN-AMERICAN > 60; GFR NON-AFRICAN AMERICAN > 60
[2018-02-19] MEDS: Pantoprazole 40 mg EC Tab PO SCH (09:04)
[2018-02-19] MEDS: Saccharomyces Boulardi 250 mg Cap PO SCH ×2 (09:04→21:09)
[2018-02-19] MEDS: Vancomycin 1 gm/NS 200 ml 1 GM/200 ML BAG IVPB SCH ×2 (10:44→20:58)
--- NOTE | 2018-02-19 11:28 | CP.PCM.PN ---
Subjective - Date & Time of Evaluation Date of Evaluation: 02/19/18 Time of Evaluation: 06:45 - Subjective Subjective: Surgery- Dr. Scott Patient seen and examined at bedside this AM. No acute events overnight. Packing changed this AM. Serous drainage. Wound site clean. Denies fevers, chills, chest pain, shortness of breath, nausea, vomiting, diarrhea Objective - Vital Signs/Intake and Output Vital Signs (last 24 hours): Temp Pulse Resp BP Pulse Ox 98.4 F 78 20 137/86 97 02/19/18 08:00 02/19/18 08:00 02/19/18 08:00 02/19/18 08:00 02/19/18 08:00 Intake and Output: 02/19/18 02/19/18 06:59 18:59 Intake Total 1350 Balance 1350 - Medications Medications: Current Medications Acetaminophen (Tylenol 325mg Tab) 650 mg PO Q6 PRN PRN Reason: Fever >100.4 F Benzocaine/Menthol (Cepacol Sore Throat) 1 lewis MT QID PRN PRN Reason: Sore Throat Last Admin: 02/18/18 17:56 Dose: 1 lewis Piperacillin Sod/Tazobactam Sod (Zosyn 3.375 Gm Iv Premix) 3.375 gm in 50 mls @ 200 mls/hr IVPB Q8H [facility] PRN Reason: Protocol Last Admin: 02/19/18 08:59 Dose: 200 mls/hr Vancomycin/Sodium Chloride (Vancomycin 1 Gm/Ns 200 Ml) 1 gm in 200 mls @ 166.7 mls/hr IVPB 1000,2200 [facility] PRN Reason: Protocol Stop: 02/23/18 10:01 Last Admin: 02/19/18 10:44 Dose: 166.7 mls/hr Ibuprofen (Motrin Tab) 400 mg PO Q6 PRN PRN Reason: Pain, Mild (1-3) Ketorolac Tromethamine (Toradol) 30 mg IV Q6 PRN PRN Reason: Pain, severe (8-10) Stop: 02/19/18 17:11 Last Admin: 02/19/18 09:04 Dose: 30 mg Pantoprazole Sodium (Protonix Ec Tab) 40 mg PO DAILY [facility] Last Admin: 02/19/18 09:04 Dose: 40 mg Saccharomyces Boulardii (Florastor) 250 mg PO Q12 [facility] Last Admin: 02/19/18 09:04 Dose: 250 mg - Labs Labs: 02/19/18 08:26 02/19/18 08:26 PT 12.5 SECONDS (9.7-12.2) H 02/17/18 17:21 INR 1.1 02/17/18 17:21 APTT 31 SECONDS (21-34) 02/18/18 06:42 - Constitutional Appears: Non-toxic, No Acute Distress - Eye Exam Eye Exam: EOMI. absent: Scleral icterus - ENT Exam ENT Exam: Mucous Membranes Moist - Neck Exam Additional comments: Wound site, clean dry intact. packing changed at bedside this AM - Respiratory Exam Respiratory Exam: NORMAL BREATHING PATTERN. absent: Accessory Muscle Use, Respiratory Distress - Cardiovascular Exam Cardiovascular Exam: +S1, +S2. absent: Bradycardia, Tachycardia - GI/Abdominal Exam GI & Abdominal Exam: Soft. absent: Distended, Firm, Guarding, Rigid, Tenderness - Extremities Exam Extremities Exam: Normal Inspection. absent: Calf Tenderness - Neurological Exam Neurological Exam: Alert, Awake, Oriented x3 - Psychiatric Exam Psychiatric exam: Normal Affect - Skin Skin Exam: Intact, Warm Assessment and Plan - Assessment and Plan (Free Text) Assessment: 42M s/p Incision and drainage of infected sebaceous cyst, removal of cyst capsule, debridement of skin POD#1 Plan: - Packing change QD - continue IV abx - pain control prn - discussed w/ Dr. Scott surgical attending PGY1
--- NOTE | 2018-02-19 12:05 | CP.PCM.PN ---
<Giselle Olsona - Last Filed: 02/19/18 12:01> Subjective - Date & Time of Evaluation Date of Evaluation: 02/19/18 Time of Evaluation: 07:00 - Subjective Subjective: Medicine Note for Hospitalist Service- Dr. Taj Otto Patient was seen and examined at bedside. Patient reports his neck feels much better, less pain at the site. Denied fever, chills, headaches, nucal rigidity, loss of sensation, tingling in extremities, chest pain, shortness of breath, abdominal pain, n/v/d/c, or urinary symptoms. Objective - Vital Signs/Intake and Output Vital Signs (last 24 hours): Temp Pulse Resp BP Pulse Ox 98.4 F 78 20 137/86 97 02/19/18 08:00 02/19/18 08:00 02/19/18 08:00 02/19/18 08:00 02/19/18 08:00 Intake and Output: 02/19/18 02/19/18 06:59 18:59 Intake Total 1350 Balance 1350 - Medications Medications: Current Medications Acetaminophen (Tylenol 325mg Tab) 650 mg PO Q6 PRN PRN Reason: Fever >100.4 F Benzocaine/Menthol (Cepacol Sore Throat) 1 lewis MT QID PRN PRN Reason: Sore Throat Last Admin: 02/18/18 17:56 Dose: 1 lewis Piperacillin Sod/Tazobactam Sod (Zosyn 3.375 Gm Iv Premix) 3.375 gm in 50 mls @ 200 mls/hr IVPB Q8H [facility] PRN Reason: Protocol Last Admin: 02/19/18 08:59 Dose: 200 mls/hr Vancomycin/Sodium Chloride (Vancomycin 1 Gm/Ns 200 Ml) 1 gm in 200 mls @ 166.7 mls/hr IVPB 1000,2200 [facility] PRN Reason: Protocol Stop: 02/23/18 10:01 Last Admin: 02/19/18 10:44 Dose: 166.7 mls/hr Ibuprofen (Motrin Tab) 400 mg PO Q6 PRN PRN Reason: Pain, Mild (1-3) Ketorolac Tromethamine (Toradol) 30 mg IV Q6 PRN PRN Reason: Pain, severe (8-10) Stop: 02/19/18 17:11 Last Admin: 02/19/18 09:04 Dose: 30 mg Pantoprazole Sodium (Protonix Ec Tab) 40 mg PO DAILY [facility] Last Admin: 02/19/18 09:04 Dose: 40 mg Saccharomyces Boulardii (Florastor) 250 mg PO Q12 [facility] Last Admin: 02/19/18 09:04 Dose: 250 mg - Labs Labs: 02/19/18 08:26 02/19/18 08:26 PT 12.5 SECONDS (9.7-12.2) H 02/17/18 17:21 INR 1.1 02/17/18 17:21 APTT 31 SECONDS (21-34) 02/18/18 06:42 - Additional Findings Additional findings: - Constitutional Appears: Non-toxic, No Acute Distress - Eye Exam Eye Exam: EOMI. absent: Scleral icterus - ENT Exam ENT Exam: Mucous Membranes Moist - Neck Exam Additional comments: Wound site, clean dry intact. packing changed at bedside this AM - Respiratory Exam Respiratory Exam: NORMAL BREATHING PATTERN. absent: Accessory Muscle Use, Respiratory Distress - Cardiovascular Exam Cardiovascular Exam: +S1, +S2. absent: Bradycardia, Tachycardia - GI/Abdominal Exam GI & Abdominal Exam: Soft. absent: Distended, Firm, Guarding, Rigid, Tenderness - Extremities Exam Extremities Exam: Normal Inspection. absent: Calf Tenderness - Neurological Exam Neurological Exam: Alert, Awake, Oriented x3 - Psychiatric Exam Psychiatric exam: Normal Affect - Skin Skin Exam: Intact, Warm Assessment and Plan - Assessment and Plan (Free Text) Assessment: This is a 42 year old male with no significant PMHx who presents to the ED with a neck abscess, no spinal involvement confirmed on CT Neck. s/p Incision and drainage of infected sebaceous cyst, removal of cyst capsule, debridement of skin 02/18/18 Plan: Posterior neck infected sebaceous cyst S/P I&D 02/18/18 - General Surgery consulted - Dr. Scott - s/p Incision and drainage of infected sebaceous cyst, removal of cyst capsule, debridement of skin 02/18/18 - ID consulted - Dr. Shrestha - help appreciated - Afebrile, no leukocytosis or left shift - CXR: NAD, EKG: Sinus Tachycardia @ 102, NAD, no ST changes - Soft Tissue Neck CT: abscess within the superficial soft tissues overlying the dorsal paraspinal muscles at level C5-6. The abscess is contained the subcutaneous fat. No involvement of the adjacent musculature or spinal canal. Degenerative changes within the thoracic spine at T9-T10 with moderate to severe right foraminal stenosis - Detsky's criteria: Patient is low-medium risk individual for Class I 6% complications (EKG: sinus tachycardia). - Patient is medically optimized for incision and drainage. Surgery and anesthesia to discuss risks and benefits prior to procedure respectively Management: - Vanco Q12, Zosyn Q8H, tylenol, motrin, toradol PRN, vanco trough 5 - (10-15 is the target trough) - will adjust accordingly - Blood cultures negative to date - Wound cultures - negative to date pending 48hr results Prophylaxis - GI: Protonix, Florastor 250mg Q12 - DVT: SCDs, VTE c/i for pre-op Disposition: Will follow up with wound culture for PO abx sensitivities to determine antibiotic regimen. Constanza Yousif Dr., DO, PGY-1 <Taj Otto J - Last Filed: 02/19/18 19:28> Objective - Vital Signs/Intake and Output Vital Signs (last 24 hours): Temp Pulse Resp BP Pulse Ox 98.4 F 78 20 128/82 97 02/19/18 16:00 02/19/18 16:00 02/19/18 16:00 02/19/18 16:00 02/19/18 16:00 Intake and Output: 02/19/18 02/20/18 18:59 06:59 Intake Total 750 Balance 750 - Medications Medications: Current Medications Acetaminophen (Tylenol 325mg Tab) 650 mg PO Q6 PRN PRN Reason: Fever >100.4 F Benzocaine/Menthol (Cepacol Sore Throat) 1 lewis MT QID PRN PRN Reason: Sore Throat Last Admin: 02/18/18 17:56 Dose: 1 lewis Piperacillin Sod/Tazobactam Sod (Zosyn 3.375 Gm Iv Premix) 3.375 gm in 50 mls @ 200 mls/hr IVPB Q8H [facility] PRN Reason: Protocol Last Admin: 02/19/18 16:30 Dose: 200 mls/hr Vancomycin/Sodium Chloride (Vancomycin 1 Gm/Ns 200 Ml) 1 gm in 200 mls @ 166.7 mls/hr IVPB 1000,2200 [facility] PRN Reason: Protocol Stop: 02/23/18 10:01 Last Admin: 02/19/18 10:44 Dose: 166.7 mls/hr Ibuprofen (Motrin Tab) 400 mg PO Q6 PRN PRN Reason: Pain, Mild (1-3) Pantoprazole Sodium (Protonix Ec Tab) 40 mg PO DAILY [facility] Last Admin: 02/19/18 09:04 Dose: 40 mg Saccharomyces Boulardii (Florastor) 250 mg PO Q12 [facility] Last Admin: 02/19/18 09:04 Dose: 250 mg - Labs Labs: 02/19/18 08:26 02/19/18 08:26 PT 12.5 SECONDS (9.7-12.2) H 02/17/18 17:21 INR 1.1 02/17/18 17:21 APTT 31 SECONDS (21-34) 02/18/18 06:42 Attending/Attestation - Attestation I have personally seen and examined this patient.: Yes I have fully participated in the care of the patient.: Yes I have reviewed all pertinent clinical information, including history, physical exam and plan: Yes Notes (Text): 02/19/18 19:27 Patient was seen and examined at 10:00 AM Exam, assessment and plan were gone over with the resident. If the blood culture continues to be negative and no fevers then we will discharge patient on 02/20/18. Taj Otto D.O.
--- NOTE | 2018-02-19 14:58 | CP.PCM.PN ---
Subjective - Date & Time of Evaluation Date of Evaluation: 02/19/18 Time of Evaluation: 03:00 - Subjective Subjective: dictated Objective - Vital Signs/Intake and Output Vital Signs (last 24 hours): Temp Pulse Resp BP Pulse Ox 98.4 F 78 20 137/86 97 02/19/18 08:00 02/19/18 08:00 02/19/18 08:00 02/19/18 08:00 02/19/18 08:00 Intake and Output: 02/19/18 02/19/18 06:59 18:59 Intake Total 1350 750 Balance 1350 750 - Medications Medications: Current Medications Acetaminophen (Tylenol 325mg Tab) 650 mg PO Q6 PRN PRN Reason: Fever >100.4 F Benzocaine/Menthol (Cepacol Sore Throat) 1 lewis MT QID PRN PRN Reason: Sore Throat Last Admin: 02/18/18 17:56 Dose: 1 lewis Piperacillin Sod/Tazobactam Sod (Zosyn 3.375 Gm Iv Premix) 3.375 gm in 50 mls @ 200 mls/hr IVPB Q8H [facility] PRN Reason: Protocol Last Admin: 02/19/18 08:59 Dose: 200 mls/hr Vancomycin/Sodium Chloride (Vancomycin 1 Gm/Ns 200 Ml) 1 gm in 200 mls @ 166.7 mls/hr IVPB 1000,2200 [facility] PRN Reason: Protocol Stop: 02/23/18 10:01 Last Admin: 02/19/18 10:44 Dose: 166.7 mls/hr Ibuprofen (Motrin Tab) 400 mg PO Q6 PRN PRN Reason: Pain, Mild (1-3) Ketorolac Tromethamine (Toradol) 30 mg IV Q6 PRN PRN Reason: Pain, severe (8-10) Stop: 02/19/18 17:11 Last Admin: 02/19/18 09:04 Dose: 30 mg Pantoprazole Sodium (Protonix Ec Tab) 40 mg PO DAILY [facility] Last Admin: 02/19/18 09:04 Dose: 40 mg Saccharomyces Boulardii (Florastor) 250 mg PO Q12 [facility] Last Admin: 02/19/18 09:04 Dose: 250 mg - Labs Labs: 02/19/18 08:26 02/19/18 08:26 PT 12.5 SECONDS (9.7-12.2) H 02/17/18 17:21 INR 1.1 02/17/18 17:21 APTT 31 SECONDS (21-34) 02/18/18 06:42
--- NOTE | 2018-02-19 15:18 | CARD ---
APPROVED REPORT EKG Measurement Heart [id number] <Conclusion> Sinus rhythm normal ECG
--- NOTE | 2018-02-20 01:33 | PN ---
DATE: BJECTIVE: The patient was afebrile. He was feeling less pain. He has a dressing. OBJECTIVE: VITAL SIGNS: Pulse was 78, blood pressure 137/86, respirations are 20. HEENT: Head is atraumatic. NECK: Supple. LUNGS: Clear. HEART: S1, S2 is regular. ABDOMEN: Soft, nontender. No guarding, no rigidity present. BACK: On the back, he did have a dressing. LABORATORY DATA: White count today was 14.8 this is postop, hemoglobin 12.8, hematocrit 36.2, platelet count of 317. ASSESSMENT AND PLAN: His wound culture was pending and there was, however, no growth in 24 hours and the patient then infected sebaceous cyst removal and remains on antibiotic. I am going to make sure he is on vancomycin and Zosyn and we will follow if there are any culture report to see how he is progressing. Conor Shrestha MD
[2018-02-20 01:34] VITALS: O2SAT 96
[2018-02-20 07:53] LABS: ALBUMIN 3.5 g/dL (3.5-5.0); BASO # 0.1 K/uL (0.0-0.2); BLOOD UREA NITROGEN 16 mg/dL (9-20); CALCIUM 8.9 mg/dl (8.6-10.4); EOS # 0.1 K/uL (0.0-0.7); EOS % 0.9 % (0.0-4.0); GFR AFRICAN-AMERICAN > 60; GFR NON-AFRICAN AMERICAN > 60; HEMOGLOBIN 12.9 g/dL (12.0-18.0); LYMPH % 26.3 % (20.0-40.0); MEAN CELL VOLUME 89.8 fL (80.0-94.0); MEAN CORPUSCULAR HEMOGLOBIN 31.6 pg (27.0-31.0); MEAN CORPUSCULAR HGB CONC 35.2 g/dL (33.0-37.0); MEAN PLATELET VOLUME 7.9 fL (7.2-11.7); MONO # 0.9 K/uL (0.0-0.8); MONO % 8.2 % (0.0-10.0); NEUT # 7.2 K/uL (1.8-7.0); NEUT % 63.6 % (50.0-75.0); NRBC % 0.1 % (0.0-2.0); RBC 4.08 Mil/uL (4.40-5.90); RED CELL DISTRIBUTION WIDTH 12.7 % (11.5-14.5); WHITE BLOOD COUNT 11.3 K/uL (4.8-10.8)
[2018-02-20 07:54] LABS: ALT/SGPT 45 U/L (21-72); AST/SGOT 34 U/L (17-59)
[2018-02-20] MEDS: Piperacill/Tazo 3.375gm in Dex 3.375 GM/50 ML BAG IVPB SCH (08:30)
--- NOTE | 2018-02-20 09:05 | CP.PCM.DIS ---
<Constanza Olson - Last Filed: 02/20/18 13:49> Provider - Provider Date of Admission: 02/17/18 17:05 Attending physician: Taj Otto MD Time Spent in preparation of Discharge (in minutes): 55 Hospital Course - Lab Results Lab Results: Micro Results 02/17/18 15:41 Blood Blood Culture - Preliminary NO GROWTH AFTER 48 HOURS 02/17/18 15:41 Blood Blood Culture - Preliminary NO GROWTH AFTER 48 HOURS 02/17/18 16:53 Abscess - Neck Gram Stain - Final 02/17/18 16:53 Abscess - Neck Wound Culture - Preliminary No growth. 02/18/18 09:25 Abscess - Neck Gram Stain - Final 02/18/18 09:25 Abscess - Neck Wound Culture - Preliminary NO GROWTH AFTER 24 HOURS Most Recent Lab Values WBC 11.3 K/uL (4.8-10.8) H 02/20/18 07:19 RBC 4.08 Mil/uL (4.40-5.90) L 02/20/18 07:19 Hgb 12.9 g/dL (12.0-18.0) 02/20/18 07:19 Hct 36.6 % (35.0-51.0) 02/20/18 07:19 MCV 89.8 fL (80.0-94.0) 02/20/18 07:19 MCH 31.6 pg (27.0-31.0) H 02/20/18 07:19 MCHC 35.2 g/dL (33.0-37.0) 02/20/18 07:19 RDW 12.7 % (11.5-14.5) 02/20/18 07:19 Plt Count 319 K/uL (130-400) 02/20/18 07:19 MPV 7.9 fL (7.2-11.7) 02/20/18 07:19 Neut % (Auto) 63.6 % (50.0-75.0) 02/20/18 07:19 Lymph % (Auto) 26.3 % (20.0-40.0) 02/20/18 07:19 [place] % (Auto) 8.2 % (0.0-10.0) 02/20/18 07:19 Eos % (Auto) 0.9 % (0.0-4.0) 02/20/18 07:19 Baso % (Auto) 1.0 % (0.0-2.0) 02/20/18 07:19 Neut # (Auto) 7.2 K/uL (1.8-7.0) H 02/20/18 07:19 Lymph # (Auto) 3.0 K/uL (1.0-4.3) 02/20/18 07:19 [place] # (Auto) 0.9 K/uL (0.0-0.8) H 02/20/18 07:19 Eos # (Auto) 0.1 K/uL (0.0-0.7) 02/20/18 07:19 Baso # (Auto) 0.1 K/uL (0.0-0.2) 02/20/18 07:19 ESR 72 mm/hr (0-15) H 02/18/18 06:42 PT 12.5 SECONDS (9.7-12.2) H 02/17/18 17:21 INR 1.1 02/17/18 17:21 APTT 31 SECONDS (21-34) 02/18/18 06:42 Sodium 144 mmol/L (132-148) 02/20/18 07:19 Potassium 4.6 mmol/L (3.6-5.2) 02/20/18 07:19 Chloride 105 mmol/L (98-107) 02/20/18 07:19 Carbon Dioxide 28 mmol/L (22-30) 02/20/18 07:19 Anion Gap 16 (10-20) 02/20/18 07:19 BUN 16 mg/dL (9-20) 02/20/18 07:19 Creatinine 1.0 mg/dL (0.8-1.5) 02/20/18 07:19 Est GFR ( Amer) > 60 02/20/18 07:19 Est GFR (Non-Af Amer) > 60 02/20/18 07:19 POC Glucose (mg/dL) 86 mg/dL (65-110) 02/18/18 08:04 Random Glucose 91 mg/dL (75-110) 02/20/18 07:19 Calcium 8.9 mg/dl (8.6-10.4) 02/20/18 07:19 Total Bilirubin 0.4 mg/dL (0.2-1.3) 02/20/18 07:19 AST 34 U/L (17-59) 02/20/18 07:19 ALT 45 U/L (21-72) 02/20/18 07:19 Alkaline Phosphatase 63 U/L (38-126) 02/20/18 07:19 C-Reactive Protein 153.10 mg/L (0.0-9.9) H 02/18/18 06:42 Total Protein 7.0 g/dL (6.3-8.3) 02/20/18 07:19 Albumin 3.5 g/dL (3.5-5.0) 02/20/18 07:19 Globulin 3.5 gm/dL (2.2-3.9) 02/20/18 07:19 Albumin/Globulin Ratio 1.0 (1.0-2.1) 02/20/18 07:19 Vancomycin Trough 5.4 ug/mL (5.0-10.0) 02/19/18 08:26 - Hospital Course Hospital Course: Upon Admission: CC: neck abscess HPI: This is a 42 year old male with no significant PMHx who presents to the ED with a neck abscess. Patient reports he has had a neck bump for about 10 years. It has never bothered him but it has increased in size throughout the years. Recently he was sick with the flu x 2 weeks ago, treated with OTC medications. Once he started to feel better, about a week ago the bump started to bother him so he applied slight pressure and pus was expelled. He washed the abscess and applied OTC antibacterial cream. He took a friend's percocet for the pain. He continued to have pus expelling and it started to become foul smelling, which is what brought him in. Denied sick contacts, recent travel. Admitted to slight headache this week. Denied fever, chills, chest pain, SOB, abdominal pain, n/v/d /c or urinary symptoms. PMHx: Denied PSHx: right thumb surgery at age 18 Meds: As per DEC All: NKDA SHx: Denied alcohol, tobacco, or illicit drug use FHx: Unremarkable PMD: none Cousin Jerel Gutierrez [phone] Maya Bolivar (friend) [phone] Throughout Hospital Course: This is a 42 year old male with no significant PMHx who presents to the ED with a neck abscess, no spinal involvement confirmed on CT Neck. s/p Incision and drainage of infected sebaceous cyst, removal of cyst capsule, debridement of skin 02/18/18 Plan: Posterior neck infected sebaceous cyst S/P I&D 02/18/18 - General Surgery consulted - Dr. Scott - s/p Incision and drainage of infected sebaceous cyst, removal of cyst capsule, debridement of skin 02/18/18 - ID consulted - Dr. Shrestha - help appreciated - Afebrile, no leukocytosis or left shift - CXR: NAD, EKG: Sinus Tachycardia @ 102, NAD, no ST changes - Soft Tissue Neck CT: abscess within the superficial soft tissues overlying the dorsal paraspinal muscles at level C5-6. The abscess is contained the subcutaneous fat. No involvement of the adjacent musculature or spinal canal. Degenerative changes within the thoracic spine at T9-T10 with moderate to severe right foraminal stenosis - Detsky's criteria: Patient is low-medium risk individual for Class I 6% complications (EKG: sinus tachycardia). - Patient is medically optimized for incision and drainage. Surgery and anesthesia to discuss risks and benefits prior to procedure respectively Management: - Vanco Q12, Zosyn Q8H, tylenol, motrin, toradol PRN, vanco trough 5 - (10-15 is the target trough) - will adjust accordingly - Blood cultures negative to date - Wound cultures - negative to date, 48hr results Instructions written and explained to patient thoroughly. Please review EMR for full record, as this is a brief summary of the patient's hospital course. Discharge Exam - Additional Findings Additional findings: - Constitutional Appears: Non-toxic, No Acute Distress - Eye Exam Eye Exam: EOMI. absent: Scleral icterus - ENT Exam ENT Exam: Mucous Membranes Moist - Neck Exam Additional comments: Wound site, clean dry intact. packing changed at bedside this AM - Respiratory Exam Respiratory Exam: NORMAL BREATHING PATTERN. absent: Accessory Muscle Use, Respiratory Distress - Cardiovascular Exam Cardiovascular Exam: +S1, +S2. absent: Bradycardia, Tachycardia - GI/Abdominal Exam GI & Abdominal Exam: Soft. absent: Distended, Firm, Guarding, Rigid, Tenderness - Extremities Exam Extremities Exam: Normal Inspection. absent: Calf Tenderness - Neurological Exam Neurological Exam: Alert, Awake, Oriented x3 - Psychiatric Exam Psychiatric exam: Normal Affect - Skin Skin Exam: Intact, Warm Discharge Plan - Discharge Medications Prescriptions: Amoxicillin/Clavulanate [Augmentin 875 MG-125 MG] 1 tab PO Q12 #14 tab Ciprofloxacin [Cipro] 500 mg PO Q12 #14 tab - Follow Up Plan Condition: STABLE Disposition: HOME/ ROUTINE Instructions: Ciprofloxacin (Systemic), Clindamycin (Systemic), Amoxicillin and Clavulanate, Cellulitis (DC), Abscess (GEN) Additional Instructions: You will be taking Augmentin 875/125mg by mouth twice a day (every 12 hours) and Ciprofloxacin 500mg by mouth twice a day (every 12 hours) x 7 days. PLEASE ALSO TAKE an over the counter probiotic (preferabbly the ones with > 50, 000 units) every day 2 hours before you take both your antibiotics Augmentin and Ciprofloxacin. You will be taking the probiotic for 40 days to help prevent nausea, diarrhea, and keep the good bacteria in your gut. If you start experiencing foul smelling diarrhea PLEASE STOP the antibiotics and come to the ED. Keep yourself well hydrated while taking the antibiotics (your body weight divided by 2 in ounces). If you do not have a PMD, you can follow up with us in the clinic downstairs in the [facility] - [phone]- you can call to make an appointment but it is preferred if you go in person and make an appointment. You can make an appointment to see me (Dr. Constanza Olson if you prefer or any other resident for further care). You will need to come to the clinic every day for changing packing if no one at home can change your packing. Please follow up with Dr. Scott/ Dr. Bob Otto in 2 weeks for post op wound check. Keep the area clean, dry and intact. You were provided with gauze and tape. Please take care and be well. Referrals: [facility] [Outside] Luis Eduardo Scott MD [Staff Provider] - Conor Shrestha MD [Staff Provider] - <Taj Otto - Last Filed: 02/20/18 19:22> Provider - Provider Date of Admission: 02/17/18 17:05 Attending physician: Taj Otto MD Time Spent in preparation of Discharge (in minutes): 40 Hospital Course - Lab Results Lab Results: Micro Results 02/18/18 09:25 Abscess - Neck Gram Stain - Final 02/18/18 09:25 Abscess - Neck Wound Culture - Preliminary No growth. 02/17/18 16:53 Abscess - Neck Gram Stain - Final 02/17/18 16:53 Abscess - Neck Wound Culture - Final No growth. 02/17/18 15:41 Blood Blood Culture - Preliminary NO GROWTH AFTER 48 HOURS 02/17/18 15:41 Blood Blood Culture - Preliminary NO GROWTH AFTER 48 HOURS Most Recent Lab Values WBC 11.3 K/uL (4.8-10.8) H 02/20/18 07:19 RBC 4.08 Mil/uL (4.40-5.90) L 02/20/18 07:19 Hgb 12.9 g/dL (12.0-18.0) 02/20/18 07:19 Hct 36.6 % (35.0-51.0) 02/20/18 07:19 MCV 89.8 fL (80.0-94.0) 02/20/18 07:19 MCH 31.6 pg (27.0-31.0) H 02/20/18 07:19 MCHC 35.2 g/dL (33.0-37.0) 02/20/18 07:19 RDW 12.7 % (11.5-14.5) 02/20/18 07:19 Plt Count 319 K/uL (130-400) 02/20/18 07:19 MPV 7.9 fL (7.2-11.7) 02/20/18 07:19 Neut % (Auto) 63.6 % (50.0-75.0) 02/20/18 07:19 Lymph % (Auto) 26.3 % (20.0-40.0) 02/20/18 07:19 [place] % (Auto) 8.2 % (0.0-10.0) 02/20/18 07:19 Eos % (Auto) 0.9 % (0.0-4.0) 02/20/18 07:19 Baso % (Auto) 1.0 % (0.0-2.0) 02/20/18 07:19 Neut # (Auto) 7.2 K/uL (1.8-7.0) H 02/20/18 07:19 Lymph # (Auto) 3.0 K/uL (1.0-4.3) 02/20/18 07:19 [place] # (Auto) 0.9 K/uL (0.0-0.8) H 02/20/18 07:19 Eos # (Auto) 0.1 K/uL (0.0-0.7) 02/20/18 07:19 Baso # (Auto) 0.1 K/uL (0.0-0.2) 02/20/18 07:19 ESR 72 mm/hr (0-15) H 02/18/18 06:42 PT 12.5 SECONDS (9.7-12.2) H 02/17/18 17:21 INR 1.1 02/17/18 17:21 APTT 31 SECONDS (21-34) 02/18/18 06:42 Sodium 144 mmol/L (132-148) 02/20/18 07:19 Potassium 4.6 mmol/L (3.6-5.2) 02/20/18 07:19 Chloride 105 mmol/L (98-107) 02/20/18 07:19 Carbon Dioxide 28 mmol/L (22-30) 02/20/18 07:19 Anion Gap 16 (10-20) 02/20/18 07:19 BUN 16 mg/dL (9-20) 02/20/18 07:19 Creatinine 1.0 mg/dL (0.8-1.5) 02/20/18 07:19 Est GFR ( Amer) > 60 02/20/18 07:19 Est GFR (Non-Af Amer) > 60 02/20/18 07:19 POC Glucose (mg/dL) 86 mg/dL (65-110) 02/18/18 08:04 Random Glucose 91 mg/dL (75-110) 02/20/18 07:19 Calcium 8.9 mg/dl (8.6-10.4) 02/20/18 07:19 Total Bilirubin 0.4 mg/dL (0.2-1.3) 02/20/18 07:19 AST 34 U/L (17-59) 02/20/18 07:19 ALT 45 U/L (21-72) 02/20/18 07:19 Alkaline Phosphatase 63 U/L (38-126) 02/20/18 07:19 C-Reactive Protein 153.10 mg/L (0.0-9.9) H 02/18/18 06:42 Total Protein 7.0 g/dL (6.3-8.3) 02/20/18 07:19 Albumin 3.5 g/dL (3.5-5.0) 02/20/18 07:19 Globulin 3.5 gm/dL (2.2-3.9) 02/20/18 07:19 Albumin/Globulin Ratio 1.0 (1.0-2.1) 02/20/18 07:19 Vancomycin Trough 5.4 ug/mL (5.0-10.0) 02/19/18 08:26 Attending/Attestation - Attestation I have personally seen and examined this patient.: Yes I have fully participated in the care of the patient.: Yes I have reviewed all pertinent clinical information, including history, physical exam and plan: Yes Notes (Text): 02/20/18 19:21 Patient was seen and examined shortly after resident. Discharge instructions were gone over with the resident as well with patient. Taj Otto D.O.
[2018-02-20 09:13] VITALS: BP 147/93; PULSE 81; RESP 21; TEMP 98.1
[2018-02-20] MEDS: Saccharomyces Boulardi 250 mg Cap PO SCH (09:18)
[2018-02-20] MEDS: Pantoprazole 40 mg EC Tab PO SCH (09:18)
[2018-02-20] MEDS: Vancomycin 1 gm/NS 200 ml 1 GM/200 ML BAG IVPB SCH (09:59)
[2018-02-20] MEDS ORDERED: Pneumococcal 23-Valent Vaccine IM ONE (11:26)
== END 2018-02-20 13:46 | disposition home or self-care (01) | DRG 581 ==
LOC: C.ER 15:21 → C.9E 17:05 → C.3T 17:19
PROVIDERS: ADMIT Family Medicine; ATTEND Family Medicine
PROC: 0HB4XZZ Excision of Neck Skin, External Approach (ICD-10-PCS; principal; 2018-02-17)
PROC: 0J970ZZ Drainage of Back Subcutaneous Tissue and Fascia, Open Approach (ICD-10-PCS; 2018-02-17)
DX: L02.11 Cutaneous abscess of neck (principal); L02.13 Carbuncle of neck; L03.221 Cellulitis of neck; L72.3 Sebaceous cyst; M48.04 Spinal stenosis, thoracic region